=== PATIENT | male | born 1995 ===

== ENCOUNTER 2023-02-01 12:48 | Emergency (ER) | payer SELFPAY ==
[2023-02-01 12:57] VITALS: BP 133/96
[2023-02-01] MEDS ORDERED: KETOROLAC 30 MG/ML VIAL IVP STA (13:07)
--- NOTE | 2023-02-01 13:13 | ED Abdominal Pain ---
General Chief Complaint: Abdominal/GI Problems Stated Complaint: ABD PAIN | GAS Nursing Triage Note: PT AMB TO [facility] 8 WITH C/O LUQ ABD PAIN SINCE YESTERDAY. PT STATES HE THINKS ITS GAS PAIN BUT HAS WORSENED TODAY. PT TRIED OTC GAS X YESTERDAY Source of Information: Patient Exam Limitations: No Limitations History of Present Illness Date Seen by Provider: Feb 01, 2023 Time Seen by Provider: 12:59 Initial Comments 27-year-old male presents to the ER with complaints of left upper and left lower quadrant abdominal pain which started yesterday around noon. He states the pain started prior to eating. Reports 1 episode of vomiting yesterday. Denies any nausea or vomiting today. States he last had a normal bowel movement yesterday, but states it was smaller in size than normal. He states that he took some Pepto-Bismol and 1 other medication yesterday which reduced the pain, but did not take the pain away completely. Denies any fevers. Denies any past medical history, does not take any medications regularly. Denies any abdominal surgeries. Allergies and Home Medications Allergies Coded Allergies: No Known Drug Allergies (Unverified , 02/01/23) Patient Home Medication List Home Medication List Reviewed: Yes Ondansetron (Ondansetron Odt) 4 Mg Tab.rapdis, 4 MG SL Q4H PRN for NAUSEA/VOMITING Prescribed by: Marcia Brown on 02/01/23 1443 Tramadol HCl (Tramadol HCl) 50 Mg Tablet, 50 MG PO Q4H PRN for PAIN Prescribed by: Marcia Brown on 02/01/23 1443 Review of Systems Review of Systems Constitutional: see HPI Past Vhvxkjj-Nqrrot-Brkxcv Hx Patient Social History Tobacco Use?: No Use of E-Cig and/or Vaping dev: No Substance use?: No Alcohol Use?: Yes Alcohol Frequency: Rarely Pt feels they are or have been: No Past Medical History Surgery/Hospitalization HX: DENIES Surgeries: No Physical Exam Vital Signs Vital Signs - First Documented 02/01/23 12:57 Temp 36.0 Pulse 100 Resp 17 B/P (MAP) 133/96 (108) Pulse Ox 100 O2 Delivery Room Air Capillary Refill : Height/Weight/BMI Height: '" Weight: lbs. oz. kg; BMI Method: General Appearance: WD/WN, mild distress, other (Diaphoretic) Neck: supple, normal inspection Respiratory: lungs clear, normal breath sounds, no respiratory distress, no accessory muscle use Cardiovascular: tachycardia Gastrointestinal: soft, abnormal bowel sounds (Hypoactive), tenderness (Generalized tenderness, worse in left upper and left lower) Extremities: normal range of motion, normal inspection Neurologic/Psychiatric: alert, normal mood/affect Skin: diaphoresis Progress/Results/Core Measures Results/Orders Lab Results Laboratory Tests Test 02/01/23 13:09 02/01/23 13:12 Range/Units White Blood Count 14.1 H 4.3-11.0 10^3/uL Red Blood Count 5.27 4.30-5.52 10^6/uL Hemoglobin 15.2 13.3-17.7 g/dL Hematocrit 47 40-54 % Mean Corpuscular Volume 88 80-99 fL Mean Corpuscular Hemoglobin 29 25-34 pg Mean Corpuscular Hemoglobin Concent 33 32-36 g/dL Red Cell Distribution Width 12.2 10.0-14.5 % Platelet Count 389 130-400 10^3/uL Mean Platelet Volume 10.2 9.0-12.2 fL Immature Granulocyte % (Auto) 0 % Neutrophils (%) (Auto) 83 H 42-75 % Lymphocytes (%) (Auto) 10 L 12-44 % Monocytes (%) (Auto) 6 0-12 % Eosinophils (%) (Auto) 0 0-10 % Basophils (%) (Auto) 0 0-10 % Neutrophils # (Auto) 11.7 H 1.8-7.8 10^3/uL Lymphocytes # (Auto) 1.3 1.0-4.0 10^3/uL Monocytes # (Auto) 0.9 0.0-1.0 10^3/uL Eosinophils # (Auto) 0.1 0.0-0.3 10^3/uL Basophils # (Auto) 0.0 0.0-0.1 10^3/uL Immature Granulocyte # (Auto) 0.1 0.0-0.1 10^3/uL Neutrophils % (Manual) 90 % Lymphocytes % (Manual) 7 % Monocytes % (Manual) 3 % Blood Morphology Comment NORMAL Sodium Level 137 135-145 MMOL/L Potassium Level 4.2 3.6-5.0 MMOL/L Chloride Level 99 98-107 MMOL/L Carbon Dioxide Level 25 21-32 MMOL/L Anion Gap 13 5-14 MMOL/L Blood Urea Nitrogen 9 7-18 MG/DL Creatinine 0.85 0.60-1.30 MG/DL Estimat Glomerular Filtration Rate 121 BUN/Creatinine Ratio 11 Glucose Level 116 H 70-105 MG/DL Calcium Level 10.1 8.5-10.1 MG/DL Corrected Calcium 9.7 8.5-10.1 MG/DL Total Bilirubin 0.4 0.1-1.0 MG/DL Aspartate Amino Transf (AST/SGOT) 29 5-34 U/L Alanine Aminotransferase (ALT/SGPT) 75 H 0-55 U/L Alkaline Phosphatase 117 40-136 U/L Total Protein 8.6 H 6.4-8.2 GM/DL Albumin 4.5 3.2-4.5 GM/DL Lipase 540 H 8-78 U/L Urine Color YELLOW Urine Clarity CLEAR Urine pH 6.0 5-9 Urine Specific [place] 1.015 L 1.016-1.022 Urine Protein NEGATIVE NEGATIVE Urine Glucose (UA) NEGATIVE NEGATIVE Urine Ketones NEGATIVE NEGATIVE Urine Nitrite NEGATIVE NEGATIVE Urine Bilirubin NEGATIVE NEGATIVE Urine Urobilinogen 0.2 < = 1.0 MG/DL Urine Leukocyte Esterase NEGATIVE NEGATIVE Urine RBC (Auto) NEGATIVE NEGATIVE Urine RBC NONE /HPF Urine WBC RARE /HPF Urine Squamous Epithelial Cells 2-5 /HPF Urine Crystals NONE /LPF Urine Bacteria NEGATIVE /HPF Urine Casts NONE /LPF Urine Mucus NEGATIVE /LPF Urine Culture Indicated NO My Orders Orders - MARCIA BROWN APRN Comprehensive Metabolic Panel (02/01/23 12:58) Lipase (02/01/23 12:58) Ua Culture If Indicated (02/01/23 12:58) Ed Iv/Invasive Line Start (02/01/23 12:58) Cbc With Automated Diff (02/01/23 12:58) Ns Iv 1000 Ml (Sodium Chloride 0.9%) (02/01/23 13:15) Ct Abdomen/Pelvis W (02/01/23 13:07) Ketorolac Injection (Toradol Injection) (02/01/23 13:07) Manual Differential (02/01/23 13:09) Iohexol Injection (Omnipaque 350 Mg/Ml 1 (02/01/23 14:00) Ns (Ivpb) (Sodium Chloride 0.9% Ivpb Bag (02/01/23 14:00) Medications Given in ED Current Medications Medications Dose Ordered Sig/[place] Route Start Time Stop Time Status Last Admin Dose Admin Iohexol 100 ml ONCE ONCE IV 02/01/23 14:00 02/01/23 14:01 DC 02/01/23 13:58 80 ML Sodium Chloride 100 ml ONCE ONCE IV 02/01/23 14:00 02/01/23 14:01 DC 02/01/23 13:58 80 ML Vital Signs/I&O 02/01/23 12:57 Temp 36.0 Pulse 100 Resp 17 B/P (MAP) 133/96 (108) Pulse Ox 100 O2 Delivery Room Air Blood Pressure Mean: 108 Progress Progress Note : Progress Note Patient seen and evaluated, resting in bed, mild distress, diaphoretic. States he is diaphoretic due to the pain. Based on exam and symptoms, work-up initiated including CBC, CMP, lipase, UA, CT abdomen pelvis. IV fluids and Toradol ordered. 1407 Labs reviewed. CBC shows elevated WBC 14.1, increased neutrophil percentage 83, and elevated neutrophil 11.7. CMP shows elevated ALT 75, normal AST 29, elevated total protein 8.6. Lipase is elevated 540. Urinalysis negative for infection. Patient just returned from CT, awaiting results of CT. 1427 CT reviewed. It shows acute pancreatitis with possible area of necrosis as well as a left perisplenic fluid collection measuring 3 cm. I am uncertain the cause of his pancreatitis. He denies excessive alcohol use, gallbladder appeared normal on CT scan, denies history of high cholesterol, does not take any medications regularly. Patient did report that he was told he had pancreatitis in the past when he was in [place]. He is uncertain of the cause. I called and spoke with Dr. Marvin, hospitalist, he recommends patient go to a facility with GI services. He believes patient will likely need an ERCP and a drain placed or surgery. I called [facility] in [place], left a message. I called [facility] in [place], they do not have GI services available. 1450 I discussed results with patient. Patient does not want to be transferred or admitted to the hospital. Extensive education was discussed with patient regarding the risks of him leaving against medical advice. I discussed the risks of , sepsis, multi organ failure. I informed him that he needs GI services, and that he will likely need an ERCP and possibly a drain or surgery. Patient verbalized understanding of risks of leaving AMA and not getting his pancreatitis treated. Patient given strict return precautions, patient verbalized understanding of return precautions. I also provided him with other hospitals that have gastrointestinal services available. Patient again verbalize understanding. I will prescribe Zofran and pain medication. Patient instructed to remain on a clear liquid diet for the next 24 hours. Patient again verbalized understanding. Patient is alert and oriented x4, he has capacity to make medical decisions. Diagnostic Imaging Diagonstic Imaging: CT Plain Films/CT/US/NM/MRI: abdomen, pelvis Comments [facility], [facility]. [place], [place] NAME: [facility] DE [facility] REC#: [id number] PT STATUS: REG ER : 1995 PHYSICIAN: MARCIA BROWN APRN ADMIT DATE: 02/01/23/ER Signed Date of Exam:02/01/23 CT ABDOMEN/PELVIS W PROCEDURE: CT abdomen and pelvis with contrast. TECHNIQUE: Multiple contiguous axial images were obtained through the abdomen and pelvis after administration of intravenous contrast. Auto Exposure Controls were utilized during the CT exam to meet ALARA standards for radiation dose reduction. All CT scans use one or more of the following dose optimizing techniques: automated exposure control, MA and/or KvP adjustment based on patient size and exam type or iterative reconstruction. INDICATION: Left upper quadrant pain. COMPARISON: None. FINDINGS: Fat stranding about the tail the pancreas with associated decreased enhancement. There is extension of inflammatory changes to surround the spleen with a small perisplenic fluid collection measuring 3.0 x 1.7 cm. Additionally there is associated left perinephric fat stranding and left pericolonic fat stranding around the splenic flexure. The liver, adrenal glands, and gallbladder are normal. Both kidneys demonstrate normal parenchymal enhancement. No hydronephrosis. The bowel is nondilated. No free intraperitoneal air. Included views of the chest demonstrates no significant abnormality. The osseous structures demonstrate no lytic or sclerotic bone lesion. IMPRESSION: Findings concerning for acute pancreatitis with decreased enhancement along the pancreatic tail which may represent an area of necrosis. Associated left perisplenic fluid collection measuring 3 cm. Fat stranding extending to surround the spleen,: At the splenic flexure, and left perinephric region most likely represents reactive change. Dictated by: Dictated on workstation # [id number] Dict: 02/01/23 1410 Trans: 02/01/23 141 [facility] [place] [id number] Interpreted by: KATE LÓPEZ DO Electronically signed by: KATE LÓPEZ DO 02/01/23 141 Departure Impression Primary Impression: Pancreatitis Qualified Codes: K85.91 - Acute pancreatitis with uninfected necrosis, unspecified Disposition: AGAINST MEDICAL ADVICE Condition: Stable Departure-Patient Inst. Decision time for Depature: 14:36 Referrals: NO,LOCAL PHYSICIAN (PCP/Family) Primary Care Physician Patient Instructions: Acute pancreatitis Add. Discharge Instructions: You are choosing to leave AGAINST MEDICAL ADVICE. You are at risk of , severe systemic infection, multi organ failure. Clear liquid diet for the next 24 hours. Take pain medication and nausea medication as needed. Please return if your pain becomes worse, you develop a fever, you have recurrent vomiting, or any other new, concerning, or worsening symptoms. You may also go to [facility] in [facility], or a hospital in the [facility] like [facility] or [facility] because these facilities will have gastrointestinal services. You will likely need a procedure called an ERCP. You may require a drain or surgery. All discharge instructions reviewed with patient and/or family. Voiced understanding. Scripts Tramadol HCl (Tramadol HCl) 50 Mg Tablet 50 MG PO Q4H PRN for PAIN, #10 TAB 0 Refills Prov: MARCIA BROWN APRN 02/01/23 Ondansetron (Ondansetron Odt) 4 Mg Tab.rapdis 4 MG SL Q4H PRN for NAUSEA/VOMITING, #10 TAB 0 Refills Prov: MARCIA BROWN APRN 02/01/23 MARCIA BROWN APRN Feb 01, 2023 13:13
[2023-02-01] MEDS ORDERED: NS IV 1000 ML 1,000 ML IV SCH (13:15)
[2023-02-01 13:20] LABS: BASOPHILS % (AUTO) 0 % (0-10); EOSINOPHILS # (AUTO) 0.1 10^3/uL (0.0-0.3); EOSINOPHILS % (AUTO) 0 % (0-10); HEMATOCRIT 47 % (40-54); HEMOGLOBIN 15.2 g/dL (13.3-17.7); LYMPHOCYTES # (AUTO) 1.3 10^3/uL (1.0-4.0); LYMPHOCYTES % (AUTO) 10 % (12-44); MEAN CORPUSCULAR HEMOGLOBIN 29 pg (25-34); MEAN CORPUSCULAR HGB CONC 33 g/dL (32-36); MEAN CORPUSCULAR VOLUME 88 fL (80-99); MEAN PLATELET VOLUME 10.2 fL (9.0-12.2); MONOCYTES # (AUTO) 0.9 10^3/uL (0.0-1.0); MONOCYTES % (AUTO) 6 % (0-12); NEUTROPHILS # (AUTO) 11.7 10^3/uL (1.8-7.8); NEUTROPHILS % (AUTO) 83 % (42-75); PLATELET COUNT 389 10^3/uL (130-400); WHITE BLOOD COUNT 14.1 10^3/uL (4.3-11.0)
[2023-02-01 13:22] LABS: BILIRUBIN,URINE NEGATIVE (NEGATIVE); CLARITY,URINE CLEAR; COLOR,URINE YELLOW; GLUCOSE, URINE (UA) NEGATIVE (NEGATIVE); KETONES,URINE NEGATIVE (NEGATIVE); LEUKOCYTE ESTERASE ,URINE NEGATIVE (NEGATIVE); NITRITE,URINE NEGATIVE (NEGATIVE); PROTEIN,URINE NEGATIVE (NEGATIVE)
[2023-02-01 13:30] LABS: BACTERIA,URINE NEGATIVE /HPF; WBC,URINE RARE /HPF
[2023-02-01 13:33] LABS: LYMPHOCYTES % (MANUAL) 7 %; MONOCYTES % (MANUAL) 3 %; NEUTROPHILS % (MANUAL) 90 %; RBC MORPH NORMAL
[2023-02-01 13:48] LABS: ALBUMIN 4.5 GM/DL (3.2-4.5); BILIRUBIN,TOTAL 0.4 MG/DL (0.1-1.0); CALCIUM 10.1 MG/DL (8.5-10.1); CREATININE SERUM 0.85 MG/DL (0.60-1.30); POTASSIUM 4.2 MMOL/L (3.6-5.0); TOTAL PROTEIN 8.6 GM/DL (6.4-8.2)
[2023-02-01] MEDS ORDERED: IOHEXOL 350 MG/ML 100 ML (OMNIPAQUE 350) VIAL IV ONE (14:00)
[2023-02-01] MEDS ORDERED: NS 100 ML (IVPB) BAG IV ONE (14:00)
--- NOTE | 2023-02-01 14:16 | Diagnostic Imaging Report ---
PROCEDURE: CT abdomen and pelvis with contrast. TECHNIQUE: Multiple contiguous axial images were obtained through the abdomen and pelvis after administration of intravenous contrast. Auto Exposure Controls were utilized during the CT exam to meet ALARA standards for radiation dose reduction. All CT scans use one or more of the following dose optimizing techniques: automated exposure control, MA and/or KvP adjustment based on patient size and exam type or iterative reconstruction. INDICATION: Left upper quadrant pain. COMPARISON: None. FINDINGS: Fat stranding about the tail the pancreas with associated decreased enhancement. There is extension of inflammatory changes to surround the spleen with a small perisplenic fluid collection measuring 3.0 x 1.7 cm. Additionally there is associated left perinephric fat stranding and left pericolonic fat stranding around the splenic flexure. The liver, adrenal glands, and gallbladder are normal. Both kidneys demonstrate normal parenchymal enhancement. No hydronephrosis. The bowel is nondilated. No free intraperitoneal air. Included views of the chest demonstrates no significant abnormality. The osseous structures demonstrate no lytic or sclerotic bone lesion. IMPRESSION: Findings concerning for acute pancreatitis with decreased enhancement along the pancreatic tail which may represent an area of necrosis. Associated left perisplenic fluid collection measuring 3 cm. Fat stranding extending to surround the spleen,: At the splenic flexure, and left perinephric region most likely represents reactive change. Dictated by: Dictated on workstation # [id number]
[2023-02-01] MEDS ORDERED: ONDA4TAB11 SL (14:43)
[2023-02-01] MEDS ORDERED: TRM50T PO (14:43)
== END 2023-02-01 14:50 | disposition left against medical advice (07) ==
LOC: ER 12:51
DX: K85.90 Acute pancreatitis without necrosis or infection, unspecified (principal); R74.01 Elevation of levels of liver transaminase levels; R74.8 Abnormal levels of other serum enzymes; Z28.310 Unvaccinated for COVID-19
CPT/HCPCS: 36415; 74177; 80053; 81000; 83690; 85007; 85027